=== PATIENT | female | born 1955 | race Caucasian/White ===

== ENCOUNTER 2020-08-06 16:49 | Emergency (ER) | payer OTHER ==
[2020-08-06] MEDS ORDERED: Acetaminophen/HYDROcodone 325-5 MG Tab PO ONE (16:50)
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
== END 2020-08-06 20:45 | disposition home or self-care (01) ==
LOC: FB.ED 16:49
DX: S32.029A Unspecified fracture of second lumbar vertebra, initial encounter for closed fracture (principal); Z88.2 Allergy status to sulfonamides; V17.4XXA Pedal cycle driver injured in collision with fixed or stationary object in traffic accident, initial encounter
CPT/HCPCS: 72100; 72131; 99284; A9270